=== PATIENT | female | born 1995 | race Caucasian/White ===

== ENCOUNTER 2016-10-30 01:36 | Emergency (ER) | payer OTHER ==
[~2016-10-30] VITALS: Ht 157.5 cm; Wt 50.1 kg
[2016-10-30 01:43] VITALS: TEMP 36.6; Ht 157.5 cm; Wt 50.1 kg
[2016-10-30] MEDS ORDERED: BENZOCAINE 20% (ORAJEL) 11.9 GM TUBE MT STA (01:59)
[2016-10-30] MEDS ORDERED: AMOXICIL/CLAVU 875MG HOME PACK PO ONE (02:00)
[2016-10-30] MEDS ORDERED: [UNRECOGNIZED DRUG - CODE] PO (02:06)
[2016-10-30] MEDS ORDERED: AMOX875T PO (02:06)
[2016-10-30 02:18] VITALS: BP 137/79; PULSE 99; O2SAT 96
--- NOTE | 2016-10-30 03:44 | EMERGENCY ROOM VISIT NOTE ---
History First contact with patient: 01:49 Chief Complaint: DENTAL PAIN Stated Complaint: FACE SWOLLEN FROM INFECTED TOOTH Nursing Triage Summary: Left sided dental pain, states that she has an infected tooth that is to be extracted on with 4 other teeth History of Present Illness The patient is a 21 year old female who presents to the Emergency Room with complaints of left-sided dental pain for the past week who went to [facility] the other day was given penicillin and Percocet. Patient states she did not fill the Percocet. Patient's been taking antibiotics. She states she saw the dentist and has appointment in November for 4 teeth to be extracted. Patient states the pain is getting worse and is worried about infection. She is requesting a stronger antibiotic. Patient denies chest pain, dyspnea, fevers , dysphagia. No redness. No drainage. Patient continues to smoke. She denies IV drug abuse or any recreational drug abuse. I asked the patient once again if she fill the Percocet and she said no. Review of Systems See HPI for pertinent positives & negatives. A total of 10 systems reviewed and were otherwise negative. Past Medical/Surgical History None Social History Smoking Status: Current Every Day Smoker Smokeless Tobacco Use: No Alcohol Use: none Drug Use: none Current/Historical Medications Scheduled Amoxicillin & Pot Clavulanate (Augmentin 875-125 mg), 1 TAB PO BID Levonorgestrel-Ethinyl Estradi (Ashlyna 0.15-0.03 &0.01 mg), 1 TAB PO DAILY Allergies Coded Allergies: No Known Allergies (Unverified , 10/30/16) Physical Exam Vital Signs Date Time Temp Pulse Resp B/P (MAP) Pulse Ox O2 Delivery O2 Flow Rate FiO2 10/30/16 02:18 99 22 137/79 96 10/30/16 01:43 36.6 110 19 129/74 94 Room Air Physical Exam VITALS: Vitals are noted on the nurse's note and reviewed by myself. Vital signs stable. GENERAL: White female tobacco odor, in no acute distress, nondiaphoretic, well- developed well-nourished. SKIN: The skin was without rashes, erythema, edema, or bruising. There is no tenting of the skin. Capillary reflex less than 2 seconds. HEAD: Normocephalic atraumatic. EARS: External auditory canals clear, tympanic membranes pearly matos without erythema or effusion bilaterally. EYES: Pupils equal round and reactive to light and accommodation. Conjunctivae without injection, sclerae without icterus. Extraocular movements intact. NOSE: Patent, turbinates without inflammation or discharge. MOUTH: Mucous membranes moist. . Pharynx without erythema or exudate. Uvula midline. Airway patent. Tongue does not deviate. Dental exam: Extensive dental decay throughout with no palpable abscess or Humberto angina NECK: Supple without nuchal rigidity. No lymphadenopathy. No thyromegaly. Cervical spine is nontender. No JVD. HEART: Regular rate and rhythm without murmurs gallops or rubs. LUNGS: Clear to auscultation bilaterally without wheezes, rales or rhonchi. No dullness to percussion. No retractions or accessory muscle use. MUSCULOSKELETAL: No muscle atrophy, erythema, or edema noted. NEURO: Patient was alert and oriented to person place and time. Normal sensation to light and sharp touch. No focal neurological deficits. Medical Decision & Procedures Medications Administered Medications (Trade) Dose Ordered Sig/Anish Route Start Time Stop Time Status Last Admin Dose Admin Amoxicillin/ Clavulanate Potassium (Augmentin 875MG Home Pack) 1 homepack UD ONCE PO 10/30/16 02:00 10/30/16 02:01 DC 10/30/16 02:00 1 HOMEPACK Benzocaine (Orajel 2% Oral Gel) 1 appln NOW STAT MT 10/30/16 01:59 10/30/16 02:01 DC 10/30/16 01:59 1 APPLN ED Course Prior records reviewed and summarized as above. Triage Nursing notes reviewed. Additional history obtained from friend The patient's history was concerning for dental pain. Differential diagnosis: Etiologies such as cellulitis, abscess, Humberto angina, dental caries, gingivitis , as well as others were entertained.. Physical examination: The physical examination was consistent with dental pain from dental caries ER treatment provided: Augmentin, Orajel On reassessment the patient felt better. Diagnostics interpreted by me: Deferred This appears to be isolated dental pain from dental caries. I asked the patient multiple times about the Percocet prescription and was adamant that she did not fill this. She was informed that this was filled on the [place] drug monitoring website. Patient denied this still to nursing and myself that she will fill the Percocet prescription. Patient was asking for something stronger for antibiotics and was given Augmentin. She is told to stop the penicillin. She then started complaining to nursing that she wants something else for pain. She is informed that she can use her narcotics that she refilled or the oral drill or Motrin. She is advised to follow-up as scheduled with dentistry next month as scheduled as this is what she informed me that she is an appointment in [place] for 4 dental extractions. She is advised follow-up family care for worsening signs or symptoms or here in the ER sooner for fevers, facial soreness , worsening signs or symptoms or as needed. It does seem that the patient was lying about the narcotic prescription. This is concerning. Patient had no obvious signs of abscess or facial cellulitis. She also drove all the way from [place] to come to this facility for further management. By the evaluation outlined above emergent etiologies such as abscess, Humberto angina, as well as others were deemed relatively unlikely. The pt informed about the findings as listed above. All questions were answered and displeased with the treatment. Return instructions were outlined and the patient was discharged in stable condition. Outpatient prescription management: Augmentin Referral: The patient was referred back to dentistry and primary care physician for follow -up in 2 to 3 days for a recheck of the current condition. Case reviewed with my attending. Medical Decision As above [place] Drug Monitoring Program Search Results: patient reviewed within database, see additional documentation (patient just had 20 Percocets filled 10/26/16) Impression Primary Impression: Dental caries Additional Impression: Tooth pain with chewing Departure Information Dispostion Home / Self-Care Condition GOOD Prescriptions Amoxicillin & Pot Clavulanate (Augmentin 875-125 mg) 1 Tab Tab 1 TAB PO BID for 9 Days, #18 TAB Prov: Elysia Dalton ., JAHAIRA 10/30/16 Referrals No Doctor, Assigned (PCP) Forms HOME CARE DOCUMENTATION FORM, IMPORTANT VISIT INFORMATION Patient Instructions Decay Tooth, Visit Dental, [facility] Additional Instructions Stop penicillin. Orajel: Apply 3-4 times a day to the affected area of your calms. You may use your Percocet that you have at home that was prescribed by the [facility] if Motrin is not strong enough for you or the Orajel. Augmentin 875mg: Take one pill 2 times daily for 10 days for your infection. All antibiotics can cause diarrhea. If this occurs and you feel worse or it does not resolve in 1-2 days follow up with your doctor or return to the Emergency Department as this could be signs of serious underlying problems. Any medication can cause an allergic reaction, stop the pills immediately and return to the ER for rash, hives, breathing difficulties, or swelling. Ibuprofen(Motrin, Advil) may be used for fever or pain. Use 400mg every six hours as needed. Take with food. Avoid using more than 1600mg in a 24 hour period. Do not use 1600mg per day for more than three consecutive days without physician direction. Prolonged inappropriate use can lead to stomach upset or ulcers. This medication can be taken if you need to drive, work, or perform activities which may be dangerous when taking narcotic pain medication. [place] teeth twice a day, floss daily and do warm saltwater gargles 3 times a day. See a dentist as soon as possible for definitive care for your dental problem. Return to ER sooner for facial swelling, fever, redness, worsening signs or symptoms or as needed. Problem Qualifiers
== END 2016-10-30 02:19 | disposition home or self-care (01) ==
LOC: C.EDB 01:38
DX: K02.9 Dental caries, unspecified (principal); K08.89 Other specified disorders of teeth and supporting structures; F17.200 Nicotine dependence, unspecified, uncomplicated; Z79.899 Other long term (current) drug therapy